=== PATIENT | female | born 1945 | race Caucasian/White ===

== ENCOUNTER 2018-08-10 09:34 | Emergency (ER) | payer OTHER ==
[~2018-08-10] VITALS: Ht 165.1 cm; Wt 72.6 kg
[2018-08-10] MEDS ORDERED: BISOPROLOL FUMAR5 MG PO (10:02)
[2018-08-10] MEDS ORDERED: LASIX40 MG PO (10:03)
[2018-08-10] MEDS ORDERED: GEMFIBROZIL600 MG PO (10:03)
[2018-08-10] MEDS ORDERED: MIRAPEX0.5 MG PO (10:03)
[2018-08-10] MEDS ORDERED: CYMBALTA30 MG PO (10:03)
[2018-08-10] MEDS ORDERED: BUSPIRONE HCL7.5 MG PO (10:03)
[2018-08-10] MEDS ORDERED: ATIVAN0.5 M1 PO (10:03)
[2018-08-10] MEDS ORDERED: ESTR0.624 PO (10:04)
[2018-08-10] MEDS ORDERED: GLUCOPHAGE XR500 MG PO (10:04)
[2018-08-10] MEDS ORDERED: MELATONIN5 GM MC (10:04)
== END 2018-08-10 14:37 | disposition home or self-care (01) ==
LOC: ER 09:34
DX: G25.81 Restless legs syndrome (principal); R06.02 Shortness of breath